=== PATIENT | female | born 1955 | race Caucasian/White ===

== ENCOUNTER → 2017-08-27 | Outpatient (CLI) | payer OTHER ==
[~2017-08-27] MED LIST: None per pt
== END | disposition home or self-care (01) ==
LOC: STAR 10:47
PROVIDERS: ATTEND Surgery
DX: Z01.818 Encounter for other preprocedural examination (principal)
CPT/HCPCS: 93005

== ENCOUNTER 2017-09-06 05:58 | Inpatient (IN) | payer OTHER ==
[~2017-09-06] VITALS: Ht 157.5 cm; Wt 87.9 kg
[2017-09-06] MEDS ORDERED: LACTATED RINGERS 1,000 ML IV SCH (06:37)
[2017-09-06] MEDS ORDERED: EPINEPHRINE 1 MG/ML, 1ML ONE (06:41)
[2017-09-06] MEDS ORDERED: BUPIVACAINE/PF 0.5% ONE (06:42)
[2017-09-06] MEDS ORDERED: MIDAZOLAM 1 MG/ML, 2ML ONE (07:00)
[2017-09-06] MEDS ORDERED: LIDOCAINE-MPF 1%, 2ML INFIL ONE (07:00)
[2017-09-06] MEDS ORDERED: FENTANYL PF 100 MCG/2ML ONE ×2 (07:00→09:41)
[2017-09-06 07:01] VITALS: BP 126/77
[2017-09-06] MEDS ORDERED: SUCCINYLCHOLINE 20 MG/ML, 10ML ONE (07:30)
[2017-09-06] MEDS ORDERED: ACETAMINOPHEN 500 MG TABLET PO ONE (07:30)
[2017-09-06] MEDS ORDERED: ROCURONIUM 10 MG/ML,10ML ONE (07:30)
[2017-09-06] MEDS ORDERED: OXYcodone IR 5MG TABLET PO ONE (07:30)
[2017-09-06] MEDS ORDERED: PROPOFOL 10 MG/ML, 20ML ONE (07:30)
[2017-09-06] MEDS ORDERED: OxyconTIN ER 10 MG TAB.ER PO ONE (07:30)
[2017-09-06] MEDS ORDERED: GABAPENTIN 300 MG CAPSULE PO ONE (07:30)
[2017-09-06] MEDS ORDERED: ONDANSETRON 2MG/ML, 2ML ONE (07:30)
[2017-09-06] MEDS ORDERED: SCOPOLAMINE PATCH, 1.5MG PATCH.TD72 TD ONE (07:30)
[2017-09-06] MEDS ORDERED: DEXAMETHASONE 4 MG/ML, 1ML ONE (07:30)
[2017-09-06] MEDS ORDERED: PROMETHAZINE 12.5 MG SUPP PR PRN (08:30)
[2017-09-06] MEDS ORDERED: ONDANSETRON 2MG/ML, 2ML IVPush PRN ×2 (08:30→10:00)
[2017-09-06] MEDS ORDERED: PROMETHAZINE 25 MG/ML, 1ML IV PRN (08:30)
[2017-09-06] MEDS ORDERED: ALBUTEROL SULFATE 2.5 MG/3 ML NPPB PRN (08:30)
[2017-09-06] MEDS ORDERED: EPHEDRINE 50 MG/ML, 1ML IVPush PRN (08:30)
[2017-09-06] MEDS ORDERED: OXYcodone 5 MG/5 ML ORAL.SOL UDC PO PRN (08:30)
[2017-09-06] MEDS ORDERED: HYDROcodone/APAP 7.5-325MG/15ML UDC PO PRN (08:30)
[2017-09-06] MEDS ORDERED: LABETALOL 5MG/ML, 20ML IV PRN (08:30)
[2017-09-06] MEDS ORDERED: hydrALAzine 20 MG/ML, 1ML IV PRN ×2 (08:30→12:30)
[2017-09-06] MEDS ORDERED: MEPERIDINE/PF 25MG/0.5ML IVPush PRN (08:30)
[2017-09-06] MEDS ORDERED: METOPROLOL 1 MG/ML, 5ML IV PRN (08:30)
[2017-09-06] MEDS ORDERED: MIDAZOLAM 1 MG/ML, 2ML IV PRN (08:30)
[2017-09-06] MEDS ORDERED: DIAZEPAM 5 MG/ML, 2ML IVPush PRN (08:30)
[2017-09-06] MEDS ORDERED: morphine SULFATE 10 MG/ML, 1ML IV PRN (08:30)
[2017-09-06] MEDS ORDERED: ONDANSETRON ODT 4 MG ONE (09:41)
[2017-09-06] MEDS: FENTANYL PF 100 MCG/2ML IV PRN ×2 (09:46→09:56)
[2017-09-06 11:05] VITALS: BP 145/61
[2017-09-06] MEDS ORDERED: ACETAMINOPHEN 650 MG SUPP PR PRN (12:30)
[2017-09-06] MEDS ORDERED: ONDANSETRON ODT 4 MG PO PRN (12:30)
[2017-09-06] MEDS ORDERED: HYDROcodone/APAP 5/325 TABLET PO PRN (12:30)
[2017-09-06] MEDS ORDERED: ONDANSETRON 2MG/ML, 2ML IV PRN (12:30)
[2017-09-06] MEDS: ACETAMINOPHEN 325 MG TABLET PO PRN ×2 (12:56→20:44)
[2017-09-06 13:55] VITALS: BP 106/59
[2017-09-06] MEDS: CALCIUM/VITAMIN D3 250-125 TABLET PO SCH ×2 (16:48→20:44)
[2017-09-06] MEDS: SODIUM CHLORIDE FLUSH 10ML SYR IVF SCH (20:44)
[2017-09-06 20:48] VITALS: BP 99/60
[2017-09-07 00:14] VITALS: BP 107/62
[2017-09-07 03:59] VITALS: BP 101/60
[2017-09-07 05:32] LABS: CALCIUM 9.1 mg/dL (8.5-10.1)
[2017-09-07] MEDS ORDERED: LEVOTHYROXINE 137 MCG TABLET PO SCH (06:00)
[2017-09-07 07:08] VITALS: BP 95/58
[2017-09-07] MEDS: CALCIUM/VITAMIN D3 250-125 TABLET PO SCH (08:26)
[2017-09-07] MEDS: SODIUM CHLORIDE FLUSH 10ML SYR IVF SCH (08:27)
[2017-09-07 09:39] VITALS: BP 97/56
[2017-09-07] MEDS ORDERED: HYDR-3240 PO (10:16)
[2017-09-07] MEDS ORDERED: LEVO137T2 PO (10:16)
== END 2017-09-07 10:26 | disposition home or self-care (01) | DRG 627 ==
LOC: OUT 05:58 → 4NOR 10:56 → OUT 11:44 → DCLOUNGE 09-07 10:12
PROVIDERS: ADMIT Surgery; ATTEND Surgery
PROC: 0GTK0ZZ Resection of Thyroid Gland, Open Approach (ICD-10-PCS; principal; 2017-09-07)
DX: E04.2 Nontoxic multinodular goiter (principal); E03.9 Hypothyroidism, unspecified; E78.5 Hyperlipidemia, unspecified
CPT/HCPCS: 36415; 82310; 83970; 88307; J0171; J1100; J2250; J2405; J2704; J3010; J3490; Q0162; C1760; J0330; J7120

== ENCOUNTER → 2020-10-17 | Outpatient (CLI) | payer MEDICARE, OTHER ==
[~2020-10-17] MED LIST changes: +HYDR-2214 PO; +LEVO137T2 PO
== END | disposition home or self-care (01) ==
LOC: CFH 09:27
PROVIDERS: ATTEND Family Medicine
DX: Z12.31 Encounter for screening mammogram for malignant neoplasm of breast (principal); N95.8 Other specified menopausal and perimenopausal disorders; M85.88 Other specified disorders of bone density and structure, other site
CPT/HCPCS: 77063; 77067; 77080